=== PATIENT | female | born 1935 | race Caucasian/White ===

== ENCOUNTER 2019-12-01 19:54 | Emergency (ER) | payer OTHER ==
[~2019-12-01] VITALS: Ht 162.6 cm; Wt 81.6 kg
[2019-12-01 20:00] VITALS: BP_SYST 95
--- NOTE | 2019-12-01 20:00 | NUR ---
Patient triaged and placed in ER [address] w/ ems gurney. VSS and patient appears in no acute distress at this time. Accompanied by emt, awaiting available bed, and MD notified of need for MSE.
--- NOTE | 2019-12-01 20:10 | NUR ---
Dr. Cochran bedside for pt eval
--- NOTE | 2019-12-01 20:20 | NUR ---
Pt BIBA to ED C/O G-tube dislodgement for 3 days. Pt with Hx of hypertension, seizure, tracheostomy, and G-tube patient's G-tube was dislodge. Nursing staff at the facility was able to place the G-tube back in. Prompted to the ED today for x-rays to confirm successful G-tube placement
[2019-12-01] MEDS ORDERED: GASTROGRAFIN 120 ML ONE (22:06)
--- NOTE | 2019-12-01 22:10 | NUR ---
Report given to Rubin JUSTIN.
[2019-12-01 22:55] VITALS: BP_SYST 98
--- NOTE | 2019-12-01 22:55 | NUR ---
Patient given written and verbal discharge instructions and verbalizes understanding. ER MD discussed with patient the results and treatment provided. Patient in stable condition. ID arm band removed. Patient educated on pain management and to follow up with PMD. Pain Scale 0/10 Opportunity for questions provided and answered
== END 2019-12-01 22:55 | disposition home or self-care (01) ==
LOC: SED 19:54
DX: Z43.1 Encounter for attention to gastrostomy (principal); I10 Essential (primary) hypertension; Z88.6 Allergy status to analgesic agent
CPT/HCPCS: 74240; 99283; Q9963